=== PATIENT | female | born 1965 | race Caucasian/White ===

== ENCOUNTER → 2018-03-19 10:17 | Outpatient (CLI) | payer OTHER, SELFPAY ==
--- NOTE | 2018-03-19 10:21 | BI_ITS ---
MAMMOGRAPHY - BILATERAL SCREENING REASON FOR EXAM: Female, 52 years old. Routine annual screening examination. PERTINENT HISTORY: Grandmother with breast cancer. History of bilateral breast implants. TECHNIQUE: Digital bilateral breast magan (3D mammographic acquisition) in the CC and MLO projections. 2-D mediolateral oblique (MLO) and craniocaudad (CC) views of both breasts were obtained. CAD: Full Field Digital Mammography with Computer Added Detection was performed. COMPARISON: Comparison is made with prior study dated March 18, 2017 and March 14. FINDINGS: Breast Composition: The breasts are heterogeneously dense, which may obscure small masses. There are no dominant masses or suspicious calcifications. Stable appearance of the bilateral breast implants. No other significant abnormalities are identified. There has been no significant change since the prior study. BI/SCREENING MAMM (CAD), BILAT IMPRESSION: Stable bilateral screening mammogram. Yearly follow-up mammogram recommended. (A) ASSESSMENT CATEGORY: BIRADS Category 2: Benign. A letter regarding these results will be sent to the patient by the facility within 30 days. Approximately 10% of breast cancers are not detected by mammography. A normal mammogram should not delay biopsy of a clinically suspicious abnormality. [id number] Electronically Signed: Greyson Shay MD at 15:30 EST Tel [phone], Service support ,
== END ==
PROVIDERS: Family Provider Family Medicine; PCP Family Medicine; Referring Provider Obstetrics & Gynecology; Visit Provider Obstetrics & Gynecology
DX: Z12.31 Encounter for screening mammogram for malignant neoplasm of breast (principal); Z80.3 Family history of malignant neoplasm of breast
CPT/HCPCS: 77063; 77067

== ENCOUNTER → 2019-03-22 08:01 | Outpatient (CLI) | payer OTHER, SELFPAY ==
--- NOTE | 2019-03-22 08:04 | BI_ITS ---
MAMMOGRAPHY - BILATERAL SCREENING 3-D TOMOSYNTHESIS REASON FOR EXAM: Female, 53 years old. FAM HX MAT GMA AGE 68 -- BILAT LIFT WITH IMPLANTS 2003 -- LT LARGER -ALWAYS PERTINENT HISTORY: Maternal grandmother with breast cancer.. TECHNIQUE: 2-D mammograms and 3-D Tomosynthesis of the breast (s) were performed with implant displacement views. CAD was performed. COMPARISON: 03/19/2018, 03/18/2017 FINDINGS: The breast composition is heterogeneously dense that can obscure small breast masses. Bilateral breast prosthesis in place, stable since prior. Scattered benign calcifications are seen, likely benign. No dense spiculated masses or suspicious microcalcifications are identified. No architectural distortion is identified. There is no skin thickening or retraction. There has been no significant change since the prior study. BI/SCREEN MAMM (CAD) W/SANDY BILAT IMPRESSION: No mammographic signs of malignancy. Routine yearly mammograms recommended. ASSESSMENT CATEGORY: BIRADS Category 2: Benign. A letter regarding these results will be sent to the patient by the facility within 30 days. FOLLOW UP RECOMMENDATION: Yearly follow up mammogram recommended. (A) Approximately 10% of breast cancers are not detected by mammography. A normal mammogram should not delay biopsy of a clinically suspicious abnormality. Electronically Signed: Chemo Ríos MD at 21:14 EST Tel [phone], Service support ,
== END ==
PROVIDERS: Family Provider Family Medicine; PCP Family Medicine; Referring Provider Obstetrics & Gynecology; Visit Provider Obstetrics & Gynecology
DX: Z12.31 Encounter for screening mammogram for malignant neoplasm of breast (principal)
CPT/HCPCS: 77063; 77067

== ENCOUNTER 2021-10-22 18:34 | Emergency (ER) | payer OTHER, SELFPAY ==
[2021-10-22 18:35] VITALS: BP 157/92; PULSE 86; RESP 18; TEMP 36.2; O2SAT 100; BMI 25.2
[2021-10-22] MEDS: fentaNYL 100 MCG/2 ML Ampul 50 MCG IV ×3 (19:02→21:02)
[2021-10-22] MEDS: Ondansetron 4 MG/2 ML Vial IV (19:02)
--- NOTE | 2021-10-22 19:25 | RAD_ITS ---
STUDY: X-RAY - LEFT WRIST REASON FOR EXAM: Female, 56 years old. trauma TECHNIQUE: 3 view(s) of the wrist were obtained. COMPARISON: None. FINDINGS: Distal ulna normal. Comminuted impacted intra-articular fracture of the distal radius. Slight dorsal angulation. Normal radiocarpal articulation. Normal distal radioulnar articulation. Normal carpal bones. Normal carpal articulations. Normal carpometacarpal articulation of the thumb. Normal second through fifth carpometacarpal articulations. Normal visualized metacarpal bones. The soft tissue structures are unremarkable. RAD/Wrist min 3 Views IMPRESSION: Fracture distal radius Electronically Signed: Chandrakant Galvin MD at 20:41 EDT ,
--- NOTE | 2021-10-22 20:59 | EDS_ITS ---
HPI History of Present Illness Chief Complaint: Upper Extremity Injury Informant: patient Onset/Context/Timing Onset: Today Context: Sudden Onset Timing: Continuous Location: L wrist Maximum Severity: Severe Worsened by: use and movement Associated Symptoms Associated Symptoms: Negative for Parasthesia, Weakness or Loss of Funtion Narrative Narrative: Patient had a mechanical fall onto her outstretched left hand. She comes to the ED with pain in her left wrist and a deformity. No weakness, numbness, or other associated symptoms. No other injuries. PFSH PFSH Medical History no medical history Home Medications oxycodone-acetaminophen 5 mg-325 mg tablet (Percocet) 1 tab PO Q6H PRN pain 3 days #12 tabs 10/22/21 [Rx Last Taken Unknown] Allergy/AdvReac Type Severity Reaction Status Date / Time codeine Allergy PT UNSURE Verified 10/22/21 18:37 OF REACTION Social History Smoking Status: Current every day smoker tobacco type: cigarettes ROS ROS ED Review of Systems ROS Unobtainable: Denies due to encephalopathy Constitutional Constitutional ED: Denies chills Eyes Eyes: Denies blurry vision ENT ENT ED: Denies ear pain Cardiovascular Cardiovascular: Denies chest pain Respiratory/Chest Respiratory/Chest: Denies cough Gastrointestinal Gastrointestinal: Denies abdominal pain Genitourinary Genitourinary ED: Denies dysuria Musculoskeletal Musculoskeletal: Denies back pain or myalgias Integumentary Denies abscess Neurologic Neurologic: Denies headache(s), paresthesias or weakness Endocrine Endocrinology: Denies cold intolerance Hematologic/Lymphatic Hematologic/Lymphatic: Denies easy bleeding Allergic/Immunologic Allergic/Immunologic ED: Reports mouth swelling EXAM Physical Exam Const Vital Signs: 10/22/21 18:35 Temperature 97.2 F L Temperature Source Temporal Pulse Rate 86 Respiratory Rate 18 Blood Pressure 157/92 H Blood Pressure Mean 113 Pulse Ox 100 Oxygen Delivery Method Room Air Positive well nourished and well developed General Appearance ED: well developed HEENT Reports moist mucous membranes Eyes EOMs intact bilaterally Resp normal respiratory effort Cardio regular rate Extremity Extremity Narrative: Patient has tenderness and a deformity to her left distal wrist. Neurovascular intact distally. Compartments soft. Neuro oriented x3 Psych mental status grossly normal Skin General Skin Exam: Negative for petechiae Lesions: no lesions Rashes: no rashes Trauma: no lacerations or abrasions MDM MDM MDM Narrative Medical decision making narrative: I reviewed the patient's x-rays. She has a distal radius fracture with mild angulation. Discussed options with the patient and we will splint her here with outpatient follow-up with orthopedics. She was treated with pain medicine while awaiting results. Patient had copious padding. Ortho-Glass splint was placed by me. This was fabricated by me. Patient tolerated this as expected. Afterwards, she is neurovascularly intact distally. Advised to rest, ice, elevate the extremity. Return right away for any complications. Otherwise follow-up with Dr. Marques. She was given a prescription for Percocet. Impression #1 left distal radius fracture Disposition is discharged home Radiography Diagnostic Testing: Clinical Impression(s) from Imaging Studies Wrist X-Ray 10/22/21 19:25 IMPRESSION: Fracture distal radius Electronically Signed: Chandrakant Galvin MD at 20:41 EDT Reading Location ID and State: [address] [place] [address] , Service support , Discharge Plan Triage Chief Complaint: Upper Extremity Injury ED Provider: Pineda Tenorio Dx/Rx/DC Orders Instructions: Wrist Fracture Prescriptions: New oxycodone-acetaminophen [Percocet] 5-325 mg tablet 1 tab PO Q6H PRN (Reason: pain) 3 Days Qty: 12 0RF Primary Care Provider: Shailesh Dexter Referrals: Dominik Marques MD [STAFF PHYSICIAN] - Disposition Disposition: Home, Self Care
[2021-10-22 21:19] VITALS: BP 134/88
== END 2021-10-22 21:27 | disposition home or self-care (01) ==
PROVIDERS: Emergency Provider Emergency Medicine; PCP Family Medicine; Visit Provider Emergency Medicine
DX: S52.502A Unspecified fracture of the lower end of left radius, initial encounter for closed fracture (principal); F17.210 Nicotine dependence, cigarettes, uncomplicated; W19.XXXA Unspecified fall, initial encounter
CPT/HCPCS: 73110; 96374; 96375; 96376; 99283; A4216; J2405